=== PATIENT | female | born 1940 | race Caucasian/White ===

== ENCOUNTER 2017-02-11 17:48 | Emergency (ER) | payer MEDICARE, OTHER ==
[~2017-02-11] VITALS: Ht 162.6 cm; Wt 63.6 kg
[2017-02-11 17:52] VITALS: Ht 162.6 cm; Wt 63.6 kg
[2017-02-11 18:06] LABS: ADD SCAN DIFF NO
--- NOTE | 2017-02-11 18:08 | RADRPT ---
PROCEDURE: CT brain without contrast CLINICAL INDICATION: Weakness. Possible stroke TECHNIQUE: A CT of the brain was performed utilizing axial sections from the skull base through th e vertex without contrast. Sagittal and coronal images were also reformatted. The exam CTDIvol = 45. 01 mGy and DLP = 810.25 mGy-cm. COMPARISON: None available FINDINGS: No acute intracranial hemorrhage is identified. There is no mass effect or midline shift. No extra -axial fluid collection is seen. The ventricles and sulci are larger in size and configuration for the patient's provided age of 77 years consistent with advanced generalized atrophy. Low attenuatio n in the periventricular subcortical white matter is nonspecific, likely the sequela of chronic smal l vessel ischemia. Winston-white differentiation is preserved with no findings to suggest an acute isc hemic infarct. The fourth ventricle is midline and there is no density alteration within the shae or cerebellum. The osseous structures are diffusely demineralized but otherwise unremarkable. The mastoid air cell s and visualized paranasal sinuses are clear. Severe atherosclerotic calcification of the cavernous internal carotid and vertebral arteries is present RPTAT:HJJR IMPRESSION: 1. 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 2. Severe atherosclerotic calcification of the cavernous internal carotid and vertebral arteries. 3. Results are discussed by telephone with emergency room physician Dr. Mercado at 18:07 Physician Nicolette Date Time Electronically viewed and signed by Physician Nicolette on 02/11/2017 18:08 JR/
[2017-02-11 18:13] LABS: BASOPHILS % 0.6 % (0.0-2.0); EOSINOPHILS # 0.1 10^3/ul (0.0-0.5); EOSINOPHILS % 1.6 % (0.0-7.0); HEMATOCRIT 33.7 % (37.0-47.0); HEMOGLOBIN 11.8 g/dl (12.0-16.0); LYMPHOCYTES # 1.7 10^3/ul (0.8-2.9); LYMPHOCYTES % 26.7 % (15.0-51.0); MEAN CORPUSCULAR HEMOGLOBIN 31.9 pg (29.0-33.0); MEAN CORPUSCULAR VOLUME 91.1 fl (82.0-101.0); MEAN PLATELET VOLUME 8.9 fl (7.4-10.4); MONOCYTE # 0.6 10^3/ul (0.3-0.9); MONOCYTES % 9.9 % (0.0-11.0); NEUTROPHIL # 3.8 10^3/ul (1.6-7.5); NEUTROPHILS % 60.7 % (39.0-77.0); PLATELET COUNT 261 10^3/UL (140-415); RED CELL DISTRIBUTION WIDTH 13.6 % (11.5-14.5); WHITE BLOOD COUNT 6.2 10^3/ul (4.8-10.8)
--- NOTE | 2017-02-11 18:17 | RADRPT ---
PROCEDURE: XR Chest. CLINICAL INDICATION: Stroke. Dyspnea. TECHNIQUE: Single frontal chest x-ray. COMPARISON: None. FINDINGS: The lungs are clear of acute infiltrates, edema, effusions, or masses. Calcific atherosclerosis of t he aorta is present. Prominent interstitial markings are present likely chronic or senescent in natu re.. The cardiomediastinal silhouette is unremarkable. The osseous structures are intact. IMPRESSION: No acute cardiopulmonary disease. Senescent changes of the chest. RPTAT: QQ .Lul Thompson MD, MD Date Time Electronically viewed and signed by .Lul Thompson MD, MD on 02/11/2017 18:16 .L/
[2017-02-11 18:22] LABS: INR 0.96; PROTIME 12.8 Sec (12.2-14.2)
[2017-02-11 18:25] LABS: ANION GAP 11 (8-16); BLOOD UREA NITROGEN 11 mg/dl (7-20); CALCIUM 9.5 mg/dl (8.4-10.2); CARBON DIOXIDE 29 mmol/L (21-31); CHLORIDE 98 mmol/L (97-110); CREATININE 0.74 mg/dl (0.44-1.00); GLUCOSE 107 mg/dl (70-220); POTASSIUM 3.3 mmol/L (3.5-5.1); SODIUM 135 mmol/L (135-144)
[2017-02-11] MEDS ORDERED: IOHEXOL 100 ML ONE (18:28)
[2017-02-11] MEDS ORDERED: SOD CHLORIDE 0.9% 100 ML ONE (18:28)
[2017-02-11] MEDS ORDERED: SOD CHLORIDE 0.9% 50 ML IV ONE (18:30)
[2017-02-11] MEDS ORDERED: ALTEPLASE (tPA) 1 MG/ML BOLUS SYG IV* ONE (18:30)
[2017-02-11] MEDS ORDERED: ALTEPLASE 100 MG INJ IV* ONE (18:30)
[2017-02-11 18:36] LABS: TROPONIN-I < 0.012 ng/ml (0.00-0.12)
--- NOTE | 2017-02-11 18:39 | ERA ---
ER Documentation Chief Complaint Date/Time DATE: 02/11/17 TIME: 18:33 Chief Complaint RIGHT SIDED WEAKNESS; HX OF CVA; LAST KNOWN WELL ABOUT 1600 HPI This is a 77-year-old female who presents via EMS with acute onset of right sided deficit. It appears that a friend saw her approximately 2 hours prior to arrival around 1530. Just prior to arrival she was noticed to be altered with slurred speech, dysarthria, hemineglect, right upper and right lower extremity weakness. Upon arrival stroke code was activated. The patient is having difficulty speaking and has expressive aphasia. Remainder of HPI is very limited given critical nature. Family reports no history of anticoagulants. ROS Limited given critical nature FmHx Critical patient Physical Exam Vitals Vital Signs Date Time Temp Pulse Resp B/P Pulse Ox O2 Delivery O2 Flow Rate FiO2 02/11/17 18:50 98.3 62 22 186/106 97 Room Air 02/11/17 18:30 98.3 60 20 168/122 100 Room Air 02/11/17 18:06 98.3 57 22 170/86 97 Room Air 02/11/17 17:58 98.3 65 22 176/85 98 Room Air 02/11/17 17:52 98.3 65 22 176/85 98 Physical Exam General: Well-developed with obvious expressive aphasia facial droop, left- sided visual deviation with right-sided hemineglect Head: Normocephalic, atraumatic. Eyes: Pupils equally reactive, EOM intact, deviation to the left ENT: Moist mucous membranes, protecting airway Neck: Supple, no lymphadenopathy Respiratory: Lungs clear bilaterally, no distress Cardiovascular: RRR, no murmurs, rubs, or gallops Abdominal: Soft, slightly protuberant but nontender, no pulsatile mass, non- distended, no peritoneal signs : Deferred MSK: No edema, no unilateral swelling, right upper extremity flaccid paralysis, right lower extremity weakness Neurologic: Patient is alert, following simple commands, expressive aphasia with dysarthria, flaccid paralysis of the right upper extremity, right-sided facial droop sparing the forehead, weakness of the right lower extremity, NIHSS of 15 Skin: No rash Psych: Normal mood Result Diagram: 02/11/17 1756 02/11/17 1756 Results 24 hrs Laboratory Tests Test 02/11/17 17:51 02/11/17 17:56 Bedside Glucose 97mg/dL White Blood Count 6.210^3/ul Red Blood Count 3.7010^6/ul Hemoglobin 11.8g/dl Hematocrit 33.7% Mean Corpuscular Volume 91.1fl Mean Corpuscular Hemoglobin 31.9pg Mean Corpuscular Hemoglobin Concent 35.0g/dl Red Cell Distribution Width 13.6% Platelet Count 16887^3/UL Mean Platelet Volume 8.9fl Neutrophils % 60.7% Lymphocytes % 26.7% Monocytes % 9.9% Eosinophils % 1.6% Basophils % 0.6% Nucleated Red Blood Cells % 0.0/100WBC Neutrophils # 3.810^3/ul Lymphocytes # 1.710^3/ul Monocytes # 0.610^3/ul Eosinophils # 0.110^3/ul Basophils # 0.010^3/ul Nucleated Red Blood Cells # 0.010^3/ul Prothrombin Time 12.8Sec Prothrombin Time Ratio 1.0 INR International Normalized Ratio 0.96 Activated Partial Thromboplast Time 29.0Sec Sodium Level 135mmol/L Potassium Level 3.3mmol/L Chloride Level 98mmol/L Carbon Dioxide Level 29mmol/L Anion Gap 11 Blood Urea Nitrogen 11mg/dl Creatinine 0.74mg/dl Glucose Level 107mg/dl Hemoglobin A1c 6.0% Calcium Level 9.5mg/dl Troponin I < 0.012ng/ml Current Medications Medications (Trade) Dose Ordered Sig/Emerson Route PRN Reason Start Time Stop Time Status Last Admin Dose Admin Alteplase, Recombinant (Activase) 5.7 mg BOLUS OVER 1 MIN ONCE IV* 02/11/17 18:30 02/11/17 18:31 DC 02/11/17 18:39 Alteplase, Recombinant 51.5 mg 51.5 mg ISCHEMIC STROKE ONCE IV* 02/11/17 18:30 02/11/17 18:31 DC 02/11/17 18:38 Sodium Chloride (NS) 50 ml @ 0 mls/hr FLUSH AFTER TPA ONCE IV 02/11/17 18:30 02/11/17 18:31 DC IV Flush 10 ml 10 ml STK-MED ONCE .ROUTE 02/11/17 18:28 02/11/17 18:29 DC Sodium Chloride 100 ml @ ud STK-MED ONCE .ROUTE 02/11/17 18:28 02/11/17 18:29 DC Iohexol (Omnipaque) 100 ml @ ud STK-MED ONCE .ROUTE 02/11/17 18:28 02/11/17 18:29 DC Procedures/MDM EKG, MONITORS, & DIAGNOSTIC IMAGING: EKG: I reviewed and interpreted a 12-lead EKG. Rhythm: Normal sinus rhythm Ectopy: None Arrhythmia: None Intervals: No abnormalities ST segments: No elevations or depressions T waves: No contiguous inversions Interpretation: No acute cardiac ischemia Chest x-ray: I reviewed and interpreted a 1 view of the chest Mediastinum: No enlargement Cardiac silhouette: No cardiomegaly Airspace: Clear lung barr bilaterally without evidence of pneumothorax Bones: No evidence of fracture Interpretation: No acute cardiopulmonary process CT Brain: No acute intracranial process CTA Head and Neck: Pending LAB INTERPRETATION: No coagulopathy, normal platelets, normal INR and PTT MEDICAL DECISION MAKING: The patient presents with acute deficit that is very concerning for a left MCA infarct. The patient is currently protecting her airway but has evidence of significant infarction and is a TPA candidate. Stroke code was activated. Please see timing section below. ER COURSE: Stroke assessment and timing: Onset of symptoms: 1530 Arrival to ED: 1746 Stroke code activation: [address] scan: [address]: 1804 Initial neurology evaluation: 1810 NIHSS: 15 TPA decision-making: The patient is a TPA candidate without contraindications. She likely has a large vessel occlusion. The benefits outweigh the risks. I had a conversation with the patient's family upon arrival and they state understanding of risks including hemorrhage. TPA bolus timin TPA drip timin Reevaluation after TPA: The patient is slightly more alert but her neurologic exam remains grossly unchanged. The patient's blood pressure has remained at or below 185/110 Stroke neurologist on-call: Dr. Ramires Critical Care Note: Total time: 56 Indication/Organ System Threat: Acute neurologic deficit and stroke code activation that requires emergent evaluation and assessment to prevent neurologic compromising collapse. I spent the above amount of critical care time with the patient, not including billable procedures. This included chart review, consultations, repeat bedside evaluations, and titration of appropriate medications to prevent cardiopulmonary or respiratory collapse. I kept the patient and/or family informed of laboratory and diagnostic imaging results throughout the emergency room course. DISPOSITION PLAN: The patient is a candidate for transfer to a tertiary center. The family prefers [facility]. We were able to reach out to the [facility] critical transport team. They have accepted the patient. Initial phone call at 1827 I spoke to Rashmi. The patient has been accepted and a critical care transport has been dispatched. Transfer packet filled out. Diagnostic imaging placed on a CD. At this time the patient is protecting her airway and does not require intubation prior to transfer. Just prior to transfer the patient's diastolic is jumped to 133. 10 mg of IV labetalol provided. Departure Diagnosis: Primary Impression: Acute ischemic stroke Condition: Serious JOSE LOW MD Feb 11, 2017 18:39
[2017-02-11 18:50] VITALS: BP 186/106; PULSE 62; RESP 22; TEMP 98.3
[2017-02-11] MEDS ORDERED: LABETALOL HCL 20MG INJ IV ONE (19:00)
[2017-02-11] MEDS ORDERED: LABETALOL HCL 20MG INJ ONE (19:01)
--- NOTE | 2017-02-11 19:21 | RADRPT ---
PROCEDURE: CTA of the neck and brain with contrast. CLINICAL INDICATION: Stroke TECHNIQUE: CT angiography of the neck and brain was performed on a high-resolution multidetector s canner during the administration of intravenous contrast. Multiplanar reconstructions, three-dimensi onal reconstructions, as well as maximal intensity projection images are produced and reviewed. Degr ees of stenosis are evaluated by NASCET criteria with reference to measurements of distal internal c arotid diameter as the denominator for stenosis measurement. One or more of the following dose reduc tion techniques were used: Automated exposure control; Adjustment of the mA and/or kV according to p atient size; Use of iterative reconstruction technique. CTDI = 17, 74 mGy. DLP = 828 mGy-cm. CONTRAST: 100 ml Omnipaque 350 administered without adverse event. COMPARISON: CT brain 02/11/2017 FINDINGS: CTA NECK: Aortic arch: Moderate atherosclerotic changes are present. Patent origins of the innominate artery, left common carotid artery, and left subclavian artery. Degraded visualization of the origins of t he right subclavian artery and right common carotid artery due to motion artifact. Right common carotid artery: Origin is poorly visualized due to motion artifact. Right internal carotid artery: 55% stenosis just distal to the carotid bulb due to combination of mi xed plaque and tortuosity. Right external carotid artery: 60% stenosis of the origin due to noncalcified plaque and tortuosity. Left common carotid artery: Patent. Left internal carotid artery: 45% stenosis of the proximal segment of the vessel due to calcified pl aque. Left external carotid artery: 50% stenosis due to noncalcified plaque and tortuosity. Right vertebral artery: Severe multifocal proximal stenosis. Left vertebral artery: Severe narrowing of the origin of the vessel appears to be due to tortuosity; there does not appear to be definite plaque in this region. Remainder of the vessel is widely lozada nt. Vertebral dominance pattern: Left Additional findings: Poor visualization of the lung parenchyma due to respiratory motion artifact, s uspected moderate centrilobular emphysematous changes within upper lung distribution. Poorly visual ized calcified granulomas and a few small pulmonary nodules measuring up to 4 mm. Peribronchial thi ckening compatible with small airways disease. mild paraseptal emphysematous changes. 1.4 cm nodul e of the left lobe of the thyroid gland. Reversal of the cervical lordosis with moderate mid cervica l spondylosis. CTA BRAIN: Mild atherosclerotic changes of the cavernous segments of both internal carotid arteries without foc al stenosis. The A1 segments of the anterior cerebral arteries are codominant. An anterior communicating artery is present. The visualized A2 and A3 distribution of the anterior cerebral arteries are patent. Acute thrombus present within the superior division M2 branch on the left. Small right-sided posterior communicating artery observed. Left-sided posterior communicating arter y not clearly visualized. The vertebral arteries are patent. The basilar artery is patent. The bilateral posterior cerebral arteries are patent. No evidence of aneurysm or arteriovenous malformation. IMPRESSION: Intravascular thrombus within the superior left M2 division with diminished enhancement to the dorsa l left frontal lobe and left parietal lobe. Right common carotid artery: Origin is poorly visualized due to motion artifact. Right internal carotid artery: 55% stenosis just distal to the carotid bulb due to combination of mi xed plaque and tortuosity. Left internal carotid artery: 45% stenosis of the proximal segment of the vessel due to calcified pl aque. Right vertebral artery: Severe multifocal proximal stenosis, patent more distally. Left vertebral artery: Severe narrowing of the origin of the vessel appears to be due to tortuosity; there does not appear to be definite plaque in this region. Remainder of the vessel is widely lozada nt. Results were discussed with Dr. Mercado by telephone at 1905 hours on 02/11/[address] Curtis huang RPTAT: AADD .Curtis Barajas MD, Date Time Electronically viewed and signed by .Curtis Barajas MD, MD on 02/11/2017 19:20 .B/
[2017-02-11 19:25] LABS: ADD UMIC NO; URINE BILIRUBIN (Dip) NEGATIVE (NEGATIVE); URINE BLOOD (Dip) NEGATIVE (NEGATIVE); URINE COLOR LT. YELLOW (YELLOW); URINE GLUCOSE (Dip) NEGATIVE (NEGATIVE); URINE KETONES (Dip) NEGATIVE (NEGATIVE); URINE LEUKOCYTE ESTERASE (Dip) NEGATIVE (NEGATIVE); URINE NITRITE (Dip) NEGATIVE (NEGATIVE); URINE TOTAL PROTEIN (Dip) NEGATIVE (NEGATIVE); URINE UROBILINOGEN (Dip) 0.2 E.U./dL (0.1-1.0)
[2017-02-11 20:07] LABS: BARBITURATES Negative (NEGATIVE); BENZODIAZEPINES Negative (NEGATIVE); CANNABINOIDS Negative (NEGATIVE); COCAINE Negative (NEGATIVE); OPIATES Negative (NEGATIVE)
== END 2017-02-11 19:28 | disposition short-term general hospital (02) ==
LOC: E/R 17:48
DX: I63.9 Cerebral infarction, unspecified (principal); R40.2142 Coma scale, eyes open, spontaneous, at arrival to emergency department; R40.2222 Coma scale, best verbal response, incomprehensible words, at arrival to emergency department; R40.2352 Coma scale, best motor response, localizes pain, at arrival to emergency department
CPT/HCPCS: 70450; 70496; 70498; 71010; 80048; 80307; 81003; 82962; 83036; 84484; 85025; 85610; 85730; 86850; 86870; 86900; 86901; 86902; 93005; J2997; Q9967; 36415; 96374; 96375